=== PATIENT | female | born 1995 | race Caucasian/White ===

== ENCOUNTER 2017-10-26 06:37 | Emergency (ER) | payer OTHER ==
[2017-10-26] MEDS: IPRATROPIUM (NEB) 0.5 MG/2.5 ML AMP INH (07:12)
[2017-10-26] MEDS: LEVALBUTEROL (NEB) 1.25 MG/0.5 ML AMP INH (07:12)
[2017-10-26] MEDS: predniSONE 20 MG TAB PO (07:15)
[2017-10-26 07:56] LABS: ADD MAN DIFF? NO
[2017-10-26 07:58] LABS: WHITE BLOOD COUNT 11.1 10^3/ul (4.8-10.8)
[2017-10-26 07:58] LABS: BASOPHIL # 0.1 10^3/ul (0.0-0.1); BASOPHILS % 0.5 % (0.0-2.0); EOSINOPHILS # 1.2 10^3/ul (0.0-0.5); HEMATOCRIT 42.3 % (37.0-47.0); HEMOGLOBIN 14.9 g/dl (12.0-16.0); LYMPHOCYTES # 1.8 10^3/ul (0.8-2.9); LYMPHOCYTES % 15.7 % (18.0-55.0); MEAN CORPUSCULAR HEMOGLOBIN 31.9 pg (29.0-33.0); MEAN CORPUSCULAR HGB CONC 35.2 g/dl (32.0-37.0); MEAN CORPUSCULAR VOLUME 90.6 fl (72.0-104.0); MEAN PLATELET VOLUME 9.7 fl (7.4-10.4); MONOCYTE # 0.8 10^3/ul (0.3-0.9); MONOCYTES % 6.9 % (0.0-13.0); NEUTROPHIL # 7.3 10^3/ul (1.6-7.5); NEUTROPHILS % 65.6 % (30.0-74.0); PLATELET COUNT 224 10^3/UL (140-415); RED BLOOD COUNT 4.67 10^6/ul (4.20-5.40); RED CELL DISTRIBUTION WIDTH 12.1 % (11.5-14.5)
[2017-10-26 08:26] LABS: ALANINE AMINOTRANSFERASE 31 IU/L (13-69); ALBUMIN 4.5 g/dl (3.3-4.9); ALBUMIN/GLOBULIN RATIO 1.25; ALKALINE PHOSPHATASE 58 IU/L (42-121); ANION GAP 19 (8-16); ASPARTATE AMINO TRANSFERASE 36 IU/L (15-46); BILIRUBIN,INDIRECT 0.9 mg/dl (0-1.1); BILIRUBIN,TOTAL 0.9 mg/dl (0.2-1.3); BLOOD UREA NITROGEN 16 mg/dl (7-20); CALCIUM 9.7 mg/dl (8.4-10.2); CARBON DIOXIDE 22 mmol/L (21-31); CHLORIDE 106 mmol/L (97-110); CREATININE 0.95 mg/dl (0.44-1.00); GLUCOSE 90 mg/dl (70-220); POTASSIUM 3.8 mmol/L (3.5-5.1); SODIUM 143 mmol/L (135-144); TOTAL PROTEIN 8.1 g/dl (6.1-8.1)
[2017-10-26] MEDS: ONDANSETRON 4 MG INJ IV (09:27)
== END 2017-10-26 10:00 | disposition home or self-care (01) ==
LOC: FTE 10:00
DX: J06.9 Acute upper respiratory infection, unspecified (principal)
CPT/HCPCS: 36415; 71045; 80053; 85025; 85378; 94644; 96374; 99284-25

== ENCOUNTER 2018-04-04 20:21 | Inpatient (IN) | payer OTHER ==
[2018-04-04] MEDS: EPINEPHrine 1 MG INJ IM (20:38)
[2018-04-04] MEDS: METHYLPREDNISOLONE 125 MG INJ IV (20:48)
[2018-04-04] MEDS: DIPHENHYDRAMINE 50 MG INJ IV (20:48)
[2018-04-04] MEDS: FAMOTIDINE 20 MG TAB PO (20:48)
[2018-04-04] MEDS: SOD CHLORIDE 0.9% 1,000 ML IV (20:49)
[2018-04-04] MEDS: ALBUTEROL 0.5% (NEB) 2.5 MG/0.5 ML AMP INH (20:49)
[2018-04-04 20:54] LABS: ADD MAN DIFF? NO
[2018-04-04 20:55] LABS: BASOPHILS % 0.2 % (0.0-2.0); EOSINOPHILS # 0.5 10^3/ul (0.0-0.5); EOSINOPHILS % 3.9 % (0.0-7.0); HEMATOCRIT 49.1 % (37.0-47.0); LYMPHOCYTES % 30.6 % (15.0-51.0); MEAN CORPUSCULAR HEMOGLOBIN 31.4 pg (29.0-33.0); MEAN CORPUSCULAR HGB CONC 34.6 g/dl (32.0-37.0); MEAN CORPUSCULAR VOLUME 90.6 fl (82.0-101.0); MEAN PLATELET VOLUME 9.5 fl (7.4-10.4); MONOCYTE # 0.7 10^3/ul (0.3-0.9); MONOCYTES % 4.9 % (0.0-11.0); NEUTROPHIL # 7.9 10^3/ul (1.6-7.5); NEUTROPHILS % 60.1 % (39.0-77.0); PLATELET COUNT 296 10^3/UL (140-415); RED BLOOD COUNT 5.42 10^6/ul (4.20-5.40); RED CELL DISTRIBUTION WIDTH 11.9 % (11.5-14.5)
[2018-04-04 20:55] LABS: WHITE BLOOD COUNT 13.2 10^3/ul (4.8-10.8)
[2018-04-04 21:17] LABS: ADD UMIC YES; UR ASCORBIC ACID 40 mg/dL (NEGATIVE); UR BILIRUBIN (Dip) NEGATIVE (NEGATIVE); UR BLOOD (Dip) NEGATIVE (NEGATIVE); UR CLARITY CLOUDY (CLEAR); UR COLOR YELLOW (YELLOW); UR GLUCOSE (Dip) 3+ mg/dL (NEGATIVE); UR KETONES (Dip) NEGATIVE (NEGATIVE); UR LEUKOCYTE ESTERASE (Dip) NEGATIVE Leu/ul (NEGATIVE); UR MUCUS FEW /HPF (NONE SEEN); UR NITRITE (Dip) NEGATIVE (NEGATIVE); UR RBC 1 /HPF (0-5); UR SPECIFIC GRAVITY (Dip) 1.011 (1.003-1.030); UR TOTAL PROTEIN (Dip) NEGATIVE (NEGATIVE); UR UROBILINOGEN (Dip) NEGATIVE (NEGATIVE); UR WBC 4 /HPF (0-5)
[2018-04-04 21:18] LABS: ALANINE AMINOTRANSFERASE 17 IU/L (13-69); ALBUMIN 4.2 g/dl (3.3-4.9); ALBUMIN/GLOBULIN RATIO 1.35; ALKALINE PHOSPHATASE 48 IU/L (42-121); ANION GAP 12 (5-13); ASPARTATE AMINO TRANSFERASE 32 IU/L (15-46); BILIRUBIN,INDIRECT 0.6 mg/dl (0-1.1); BILIRUBIN,TOTAL 0.6 mg/dl (0.2-1.3); BLOOD UREA NITROGEN 13 mg/dl (7-20); CALCIUM 9.5 mg/dl (8.4-10.2); CARBON DIOXIDE 24 mmol/L (21-31); CHLORIDE 103 mmol/L (97-110); CREATININE 0.88 mg/dl (0.44-1.00); Estimated GFR > 60 mL/min (>60); GLUCOSE 133 mg/dl (70-220); SODIUM 139 mmol/L (135-144); TOTAL PROTEIN 7.3 g/dl (6.1-8.1)
[2018-04-04 21:23] LABS: POTASSIUM 2.7 mmol/L (3.5-5.1)
[2018-04-04 21:29] LABS: TROPONIN-I < 0.012 ng/ml (0.000-0.120)
[2018-04-04] MEDS: POTASSIUM CHLORIDE (SR) 20 MEQ TAB PO (22:05)
[2018-04-04] MEDS ORDERED: DOCUSATE SODIUM 100 MG CAP PO (23:30)
[2018-04-04] MEDS ORDERED: ONDANSETRON 4 MG TAB PO (23:30)
[2018-04-04] MEDS ORDERED: ACETAMINOPHEN 650MG/20.3ML CUP PO (23:30)
[2018-04-04] MEDS ORDERED: DIPHENHYDRAMINE 50 MG INJ IV (23:30)
[2018-04-04] MEDS ORDERED: ALBUTEROL/IPRATROPIUM (NEB) 3 ML AMP NEB (23:30)
[2018-04-04 23:49] LABS: ABNORMAL IP MESSAGE 1; HEMATOCRIT 40.4 % (37.0-47.0); MEAN CORPUSCULAR HEMOGLOBIN 31.7 pg (29.0-33.0); MEAN CORPUSCULAR HGB CONC 34.7 g/dl (32.0-37.0); MEAN CORPUSCULAR VOLUME 91.4 fl (82.0-101.0); PLATELET COUNT 205 10^3/UL (140-415); RED BLOOD COUNT 4.42 10^6/ul (4.20-5.40); RED CELL DISTRIBUTION WIDTH 11.9 % (11.5-14.5)
[2018-04-04 23:49] LABS: WHITE BLOOD COUNT 15.1 10^3/ul (4.8-10.8)
[2018-04-05 00:04] LABS: POSITIVE DIFF @See below
[2018-04-05 00:05] LABS: ADD MAN DIFF? YES
[2018-04-05 00:10] LABS: ANION GAP 6 (5-13); BLOOD UREA NITROGEN 12 mg/dl (7-20); CALCIUM 8.7 mg/dl (8.4-10.2); CARBON DIOXIDE 22 mmol/L (21-31); CHLORIDE 109 mmol/L (97-110); CREATININE 0.69 mg/dl (0.44-1.00); Estimated GFR > 60 mL/min (>60); GLUCOSE 117 mg/dl (70-220); POTASSIUM 3.6 mmol/L (3.5-5.1); SODIUM 137 mmol/L (135-144)
[2018-04-05 00:22] LABS: TROPONIN-I < 0.012 ng/ml (0.000-0.120)
[2018-04-05 00:38] LABS: AADO2 Arterial 20.4 mmHg (7.0-24.0); Allen Test ACCEPTAB; Arterial Base Excess -0.8 mmol/L (-3.0-3); Arterial Blood Gas Oxygen Sat 96.6 mmHG (95.0-98.0); Arterial COHb 0.1 % (0.0-3.0); Arterial Fraction of Oxyhgb 96.1 % (93.0-99.0); Arterial MetHb 0.4 % (0.0-1.5); Arterial pCO2 35.8 mmhg (35-45); MODE ROOM AIR; Site Right Radial
[2018-04-05 00:52] LABS: EOSINOPHILS % (M) 1 % (0-7); GIANT THROMBO% (M) 1 % (0-0); LYMPHOCYTES #M 0.4 10^3/ul (0.8-2.9); LYMPHOCYTES % (M) 3 % (15-51); MONOCYTE #M 0.4 10^3/ul (0.3-0.9); MONOCYTES % (M) 3 % (0-11); PLATELET ESTIMATE NORMAL; SEGMENTED NEUTROPHILS (M) % 93 % (39-77)
[2018-04-05] MEDS: ALBUTEROL/IPRATROPIUM (NEB) 3 ML AMP NEB ×3 (01:00→09:13)
[2018-04-05] MEDS: METHYLPREDNISOLONE 125 MG INJ IV ×2 (01:20→05:21)
[2018-04-05] MEDS: SOD CHLORIDE 0.9% 1,000 ML IV (01:20)
[2018-04-05] MEDS: PANTOPRAZOLE (EC) 40 MG TAB PO (05:21)
[2018-04-05 05:42] LABS: TROPONIN-I < 0.012 ng/ml (0.000-0.120)
[2018-04-05 12:52] LABS: TROPONIN-I < 0.012 ng/ml (0.000-0.120)
[2018-04-06] MEDS ORDERED: METHYLPREDNISOLONE 125 MG INJ IV (09:00)
== END 2018-04-05 17:47 | disposition home or self-care (01) | DRG 916 ==
LOC: ICU 21:17 → E/R 20:21
DX: T78.2XXA Anaphylactic shock, unspecified, initial encounter (principal); E87.6 Hypokalemia; R21 Rash and other nonspecific skin eruption; L29.9 Pruritus, unspecified; L50.9 Urticaria, unspecified; R00.0 Tachycardia, unspecified
CPT/HCPCS: 36415; 36600; 71045; 80048; 80053; 81001; 81025; 82803; 84484; 85025; 87081; 93005; 93306; 94640; 94644; 94664; 96372; 96374; 96375; 99291-25

== ENCOUNTER 2018-07-21 15:34 | Emergency (ER) | payer SELFPAY, OTHER | END 2018-07-21 22:16 | disposition left against medical advice (07) | LOC: FTE 15:34 | DX: Z53.21 Procedure and treatment not carried out due to patient leaving prior to being seen by health care provider (principal) ==

== ENCOUNTER 2018-10-29 15:15 | Emergency (ER) | payer SELFPAY ==
[2018-10-29] MEDS: predniSONE 20 MG TAB PO (16:27)
== END 2018-10-29 16:40 | disposition home or self-care (01) ==
LOC: FTE 15:15
DX: R21 Rash and other nonspecific skin eruption (principal)
CPT/HCPCS: 99283

== ENCOUNTER → 2018-12-10 | Emergency (ER) | payer OTHER ==
[2018-12-10] MEDS: FAMOTIDINE 20 MG TAB PO (12:43)
[2018-12-10] MEDS: DEXAMETHASONE 4 MG TAB PO (12:46)
== END | disposition home or self-care (01) ==
LOC: FTE 12:15
DX: L50.9 Urticaria, unspecified (principal)
CPT/HCPCS: 99283; Z7502